=== PATIENT | male | born 1990 | race African-American/Black ===

== ENCOUNTER 2016-10-08 13:05 | Emergency (ER) | payer OTHER ==
[2016-10-08 14:22] VITALS: BP 118/70
--- NOTE | 2016-10-08 15:03 | UC ---
Shoulder Pain HPI - HPI Summary HPI Summary: 26 yo male s/p right shoulder injury 5 yrs ago persistent pain since then 04/24 had MRI at [facility] Told he had a torn rotator cuff Planning surgery this spring pain has worsened past 3 months now marked decreased ROM and pain has bee interfering with his ADLs - History of Current Complaint Chief Complaint: UCUpperExtremity Stated Complaint: RIGHT SHOULDER PAIN Time Seen by Provider: 10/08/16 14:47 Hx Obtained From: Patient Onset/Duration: Gradual Onset, Worse Since - x 3 months Timing: Constant Severity Initially: Mild Severity Currently: Severe Location Of Pain: Is Diffuse Pain Intensity: 8 Pain Scale Used: 0-10 Numeric Character: Sharp, Aching, Throbbing, Spasmodic Aggravating Factor(s): Movement, Flexion, Extension, Internal Rotation, External Rotation, Abduction Alleviating Factor(s): Rest Related History: Dominant Hand Right - Allergies/Home Medications Allergies/Adverse Reactions: Allergies Allergy/AdvReac Type Severity Reaction Status Date / Time Penicillins Allergy Intermediate Rash Verified 04/23/15 21:20 Sulfa Antibiotics Allergy Intermediate Rash Verified 04/23/15 21:20 Home Medications: Home Medications Amphetamine-Dextroamphetamine [Adderall 15 mg] 1 tab PO DAILY 10/08/16 [History Confirmed 10/08/16] PMH/Surg Hx/FS Hx/Imm Hx Previously Healthy: Yes Neurological History Of: Reports: Migraine Denies: TIA, CVA, Dementia, Seizures Psychological History Of: Reports: Anxiety, Depression Denies: Bipolar Disorder, Schizophrenia - Surgical History Surgical History: None - Family History Known Family History: Positive: Cardiac Disease, Hypertension, Diabetes, Other - lung CA - Social History Alcohol Use: Rare Alcohol Amount: states he gets drunk once every 3 months. Substance Use Type: Marijuana Substance Use Comment - Amount & Last Used: states the minimum he smokes of pot every day is 1 gram. Smoking Status (MU): Light Every Day Tobacco Smoker Type: Cigarettes Amount Used/How Often: 1/4 ppd Length of Time of Smoking/Using Tobacco: 1 year Have You Smoked in the Last Year: Yes - Immunization History Most Recent Influenza Vaccination: declined Most Recent Tetanus Shot: current Most Recent Pneumonia Vaccination: n/a Review of Systems Constitutional: Negative Skin: Negative Eyes: Negative ENT: Negative Respiratory: Negative Cardiovascular: Negative Gastrointestinal: Negative Genitourinary: Negative Motor: Negative Neurovascular: Negative Musculoskeletal: Arthralgia Neurological: Negative Psychological: Negative All Other Systems Reviewed And Are Negative: Yes Physical Exam Triage Information Reviewed: Yes Appearance: Well-Appearing, No Pain Distress, Well-Nourished Vital Signs: Initial Vital Signs Temp 99.1 F 10/08/16 14:11 Pulse 82 10/08/16 14:11 Resp 16 10/08/16 14:11 BP 118/70 10/08/16 14:11 Pulse Ox 100 10/08/16 14:11 Vital Signs Reviewed: Yes Eyes: Positive: Conjunctiva Clear ENT: Positive: Hearing grossly normal. Negative: Nasal congestion, Nasal drainage, Trismus, Muffled/hoarse voice Neck: Positive: Supple, Nontender Respiratory: Positive: Chest non-tender, Lungs clear, Normal breath sounds Cardiovascular: Positive: RRR, No Murmur Musculoskeletal: Positive: ROM Limited @ - right shoulder-only able to abduct to 5 degrees pain with int and ext rotation Neurological: Positive: Alert Psychological Exam: Normal Skin Exam: Normal Shoulder Course/Dx - Course Course Of Treatment: pt refuses sling. pt refuses NSAIDS. pt refuses PT. pt declines offer to get him in to see local orthopedist or medical office specialist - Differential Dx/Diagnosis Provider Diagnoses: right shoulder pain. torn rotator cuff by history Discharge - Discharge Plan Condition: Stable Disposition: HOME Prescriptions: traMADol TAB* [Ultram*] 50 mg PO Q4HR PRN #30 tab MDD 2 PRN Reason: Pain Patient Education Materials: Shoulder Pain (ED) Referrals: Non Staff,Doctor [Primary Care Provider] - Additional Instructions: see orthopedist in about 2 weeks as planned Just take tramadol a night if having trouble sleeping tejinder
--- NOTE | 2016-10-08 15:41 | RAD ---
INDICATION: Right shoulder pain COMPARISON: None TECHNIQUE: Routine frontal and Y views were obtained. FINDINGS: The bony structures, joint spaces, and soft tissues are normal for age. IMPRESSION: NEGATIVE EXAMINATION.
== END 2016-10-08 16:18 | disposition home or self-care (01) ==
LOC: UCCORT 13:05
DX: M25.511 Pain in right shoulder (principal); M75.101 Unspecified rotator cuff tear or rupture of right shoulder, not specified as traumatic; Z88.0 Allergy status to penicillin; Z88.2 Allergy status to sulfonamides; F12.90 Cannabis use, unspecified, uncomplicated; F17.210 Nicotine dependence, cigarettes, uncomplicated
CPT/HCPCS: 99212; G0463